=== PATIENT | male | born 1975 | race Caucasian/White ===

== ENCOUNTER 2023-04-05 15:40 | Outpatient (CLI) | payer BC | END 2023-04-05 15:41 | disposition home or self-care (01) | LOC: LABBT 15:40 | PROVIDERS: ATTEND Student in an Organized Health Care Education/Training Program | DX: Z01.810 Encounter for preprocedural cardiovascular examination (principal); J34.2 Deviated nasal septum; J34.3 Hypertrophy of nasal turbinates; K21.9 Gastro-esophageal reflux disease without esophagitis; R09.81 Nasal congestion | CPT/HCPCS: 93005; 93010 ==

== ENCOUNTER 2023-04-10 07:25 | Day surgery (SDC) | payer BC ==
[2023-04-05 16:51] VITALS: BMI 29.9
[2023-04-10] MEDS ORDERED: Oxymetazoline HCl 0.05% (30 ML BOT) ONE ×2 (09:22→10:11)
[2023-04-10] MEDS ORDERED: SUGAMMADEX SODIUM 200 MG/2 ML VIAL ONE (09:44)
[2023-04-10] MEDS ORDERED: Dexmedetomidine 200 MCG/2 ML VIAL ONE (09:44)
[2023-04-10] MEDS ORDERED: fentaNYL PF 100 MCG/2 ML SYRINGE ONE (09:44)
[2023-04-10] MEDS ORDERED: Lidocaine 1% (PF) 30 ML VIAL ONE (10:10)
[2023-04-10] MEDS ORDERED: Bacitracin Zinc Ointment 30 gm TUBE ONE (10:11)
[2023-04-10] MEDS ORDERED: EPINEPHrine 1 MG/ML AMP ONE (10:11)
[2023-04-10] MEDS ORDERED: Rocuronium Bromide 10 MG/ML (10ML VIAL) ONE (10:32)
[2023-04-10] MEDS ORDERED: ePHEDrine Sulfate 50 MG/10 ML VIAL ONE (10:32)
[2023-04-10] MEDS ORDERED: PROPOFOL 200 MG/20 ML VIAL ONE (10:32)
[2023-04-10] MEDS ORDERED: Ondansetron PF 4 MG/2 ML Vial ONE (10:32)
[2023-04-10] MEDS ORDERED: PHENYLEPHRINE-NS 100 MCG/ML 10 ML SYRINGE ONE (10:32)
[2023-04-10] MEDS ORDERED: Dexamethasone 20 MG/5 ML VIAL ONE (10:32)
[2023-04-10] MEDS ORDERED: Lidocaine 1% PF 5 ML VIAL ONE (10:32)
[2023-04-10] MEDS ORDERED: Hydrocodone-Acetamin 15 ML UDCUP ONE (13:23)
== END 2023-04-10 13:38 | disposition home or self-care (01) ==
LOC: SDC 07:25
PROVIDERS: ATTEND Student in an Organized Health Care Education/Training Program
PROC: 09BM0ZZ Excision of Nasal Septum, Open Approach (ICD-10-PCS; principal; 2023-04-10)
DX: J34.2 Deviated nasal septum (principal); J34.3 Hypertrophy of nasal turbinates; K21.9 Gastro-esophageal reflux disease without esophagitis; Z88.2 Allergy status to sulfonamides; Z79.899 Other long term (current) drug therapy
CPT/HCPCS: J0171; J1100; J2001; J2405; J2704